=== PATIENT | male | born 1990 | race African-American/Black ===

== ENCOUNTER 2019-01-20 19:07 | Emergency (ER) | payer OTHER ==
[~2019-01-20] VITALS: Ht 193 cm; Wt 77.1 kg
[2019-01-20] MEDS ORDERED: MEDROLDOSEPACK PO (19:26)
[2019-01-20 19:44] VITALS: BP 120/72
== END 2019-01-20 19:45 | disposition home or self-care (01) ==
LOC: M.ERS 19:07
DX: T63.461A Toxic effect of venom of wasps, accidental (unintentional), initial encounter (principal); M79.652 Pain in left thigh; F17.200 Nicotine dependence, unspecified, uncomplicated; Y92.89 Other specified places as the place of occurrence of the external cause